=== PATIENT | female | born 1980 | race Caucasian/White ===

== ENCOUNTER 2018-09-27 13:39 | Emergency (ER) | payer OTHER ==
[~2018-09-27] VITALS: Ht 162.6 cm; Wt 97.6 kg
--- NOTE | 2018-09-27 14:00 | NUR ---
PT PRESENTS TO ED WITH C/O HIVES ALL OVER BODY. STATES SEEN IN ED IN [place]. STATES PUT ON STEROIDS AND ZANTEC. STATES NO IMPROVEMENT SINCE STARTING MEDICATIONS. PT APPEARS TO BE VERY AXIOUS AND DUE TO THIS IS BREATHING RAPID THOUGH UNLABORED. MILD AMOUNT OF DISTRESS NOTED. PT DENIES ISSUES WITH SWALLOWING AT THIS TIME. AWAITING EVAL AND ORDERS. WILL CONTINUE TO MONITOR.
[2018-09-27] MEDS ORDERED: DIPHENHYDRAMINE 50 MG/ML, 1ML IVPush ONE (14:30)
[2018-09-27] MEDS ORDERED: DEXAMETHASONE 4 MG/ML, 1ML IVPush ONE (14:30)
[2018-09-27] MEDS ORDERED: FAMOTIDINE 20 MG/2 ML IVPush ONE (14:30)
[2018-09-27] MEDS ORDERED: SODIUM CHLORIDE FLUSH 10ML SYR IVF ONE (14:30)
[2018-09-27] MEDS ORDERED: SODIUM CHLORIDE 0.9% 1,000ML IVBOLUS ONE (14:30)
--- NOTE | 2018-09-27 14:34 | NUR ---
IV STARTED. IVF STARTED. POC UPDATED.
[2018-09-27] MEDS ORDERED: DEXAMETHASONE 4 MG/ML, 5ML ONE (14:37)
[2018-09-27] MEDS ORDERED: DIPHENHYDRAMINE 50 MG/ML, 1ML ONE (14:37)
[2018-09-27] MEDS ORDERED: FAMOTIDINE 20 MG/2 ML ONE (14:37)
--- NOTE | 2018-09-27 14:40 | NUR ---
PT MEDICATED PER OCT. 5 RIGHTS VERIFIED PRIOR. 3 P'S ADDRESSED.
[2018-09-27 15:08] LABS: ALANINE AMINOTRANSFERASE 15 U/L (12-78); ANION GAP 6 mmol/L (5-15); CALCIUM 8.1 mg/dL (8.5-10.1); CHLORIDE 103 mmol/L (98-107); CREATININE 0.81 mg/dL (0.55-1.02)
[2018-09-27 15:09] LABS: BASOPHILS # (AUTO) 0.01 x10^3/uL (0-0.1); BASOPHILS % (AUTO) 0 % (0-1); EOSINOPHILS # (AUTO) 0.02 x10^3/uL (0-0.4); EOSINOPHILS % (AUTO) 0 % (1-7); LYMPHOCYTES # (AUTO) 1.81 x10^3/uL (1-3.4); LYMPHOCYTES % (AUTO) 26 % (22-44); MEAN CORPUSCULAR HEMOGLOBIN 29.8 pg (27.0-34.8); MEAN CORPUSCULAR HGB CONC 32.5 g/dL (32.4-35.8); MEAN CORPUSCULAR VOLUME 91.8 fL (80-100); MEAN PLATELET VOLUME 8.6 fL (7.4-10.4); MONOCYTES # (AUTO) 0.12 x10^3/uL (0.2-0.8); MONOCYTES % (AUTO) 2 % (2-9); NEUTROPHILS # (AUTO) 4.94 x10^3/uL (1.8-6.8); NEUTROPHILS % (AUTO) 71 % (42-75); PLATELET COUNT 343 x10^3/uL (130-400); RED BLOOD COUNT 5.08 x10^6/uL (3.82-5.3); RED CELL DISTRIBUTION WIDTH 13.2 % (9.6-15.2)
[2018-09-27 15:12] LABS: ALKALINE PHOSPHATASE 61 U/L (45-117); MD NO; TOTAL PROTEIN 6.5 g/dL (6.4-8.2)
[2018-09-27] MEDS ORDERED: hydrOXyzine 50MG TABLET ONE (16:13)
--- NOTE | 2018-09-27 16:25 | NUR ---
BREAK RN: PT RESTING QUIETLY, NO DISTRESS. STATES PRURITIS INITIALLY IMPROVED, NOW RETURNING. NO S/S RESP DISTRESS. PT MEDICATED WITH ATARAX AND CLEARED FOR DISCHARGE.
[2018-09-27 16:32] VITALS: BP 110/60
== END 2018-09-27 16:33 | disposition home or self-care (01) ==
LOC: ED 14:51
DX: L50.9 Urticaria, unspecified (principal); Z88.2 Allergy status to sulfonamides; Z91.09 Other allergy status, other than to drugs and biological substances
CPT/HCPCS: 36415; 80053; 84703; 85025; 93005; 96374; 96375; 99284; J1100; J1200; J3490; J7030; Q0177